=== PATIENT | female | born 1975 | race Caucasian/White ===

== ENCOUNTER 2018-06-13 23:15 | Emergency (ER) | payer OTHER, BC ==
[2018-06-14 01:05] LABS: URINE PH (Dip) POC 6.5 (5.0-8.5)
[2018-06-14 01:05] LABS: URINE BLOOD (Dip) POC 2+ (NEGATIVE); URINE GLUCOSE (Dip) POC Negative (NEGATIVE); URINE KETONES (Dip) POC Trace (NEGATIVE); URINE LEUKOCYTE EST (Dip) POC 2+ (NEGATIVE); URINE NITRITE (Dip) POC Negative (NEGATIVE); URINE TOTAL PROTEIN POC Negative (NEGATIVE)
== END 2018-06-14 01:24 | disposition home or self-care (01) ==
LOC: FTE 23:15
DX: N30.90 Cystitis, unspecified without hematuria (principal); R42 Dizziness and giddiness
CPT/HCPCS: 70450; 81003; 81025; 82962; 93005; 99284-25